=== PATIENT | female | born 1945 | race Caucasian/White ===

== ENCOUNTER → 2023-06-28 14:07 | Outpatient (REF) | payer MEDICARE, OTHER, SELFPAY ==
[2023-06-28 19:06] LABS: Urine Albumin Negative (Neg - Trace); Urine Bilirubin Negative (Negative); Urine Character Clear (Clear); Urine Color Yellow; Urine Glucose Negative (Negative); Urine Ketone Negative (Negative); Urine Leukocyte Negative (Negative); Urine Nitrite Negative (Negative); Urine Occult Blood Negative (Negative); Urine Urobilinogen Negative (Neg - 1+)
== END ==
LOC: CLAB 14:07
PROVIDERS: ATTENDING PHYSICIAN Nurse Practitioner Family
DX: R30.0 Dysuria (principal); R39.9 Unspecified symptoms and signs involving the genitourinary system
CPT/HCPCS: 81003; 87086

== ENCOUNTER → 2023-10-02 10:47 | Outpatient (REF) | payer MEDICARE, OTHER, SELFPAY | LOC: RAD 10:47 | PROVIDERS: ATTENDING PHYSICIAN Internal Medicine Endocrinology, Diabetes & Metabolism; FAMILY PHYSICIAN Family Medicine | DX: M81.0 Age-related osteoporosis without current pathological fracture (principal) | CPT/HCPCS: 77080 ==

== ENCOUNTER → 2024-05-22 07:57 | Outpatient (REF) | payer MEDICARE, OTHER, SELFPAY ==
[2024-05-22 08:53] LABS: % Basophils 0.7 % (0-2); % Eosinophils 2.9 % (0-6); % Immature Granulocytes 0.4 % (0-0.5); % Lymphocytes 29.8 % (20.5-51.1); % Monocytes 11.2 % (1.7-9.3); Absolute Eosinophils 0.2 10^3/uL (0-0.7); Absolute Lymphocytes 1.6 10^3/uL (1.2-3.4); Absolute Monocytes 0.6 10^3/uL (0.1-0.6); Hematocrit 41.2 % (37.0-47.0); Hemoglobin 13.5 g/dL (12.0-16.0); Mean Corp Hgb Conc. 32.8 g/dL (33.0-37.0); Mean Corpuscular Volume 97.6 fL (81.0-99.0); Mean Platelet Volume 8.1 fL (7.4-10.4); Nucleated Red Blood Cells % 0 %; Platelet Count 244 10^3/uL (130-400); Red Blood Cell Count 4.22 10^6/uL (4.20-5.40); Red Cell Dist. Width 12.2 % (11.5-14.5); White Blood Cell Count 5.4 10^3/uL (4.8-10.8)
[2024-05-22 11:03] LABS: ALT (SGPT) 22 U/L (0-35); AST (SGOT) 26 U/L (14-36); Albumin 4.3 g/dl (3.5-5.0); Alkaline Phosphatase 62 U/L (38-126); Blood Urea Nitrogen 16 mg/dl (7-17); Calcium 9.1 mg/dl (8.4-10.2); Carbon Dioxide 25 mmol/L (22-30); Chloride 103 mmol/L (98-107); Glucose 89 mg/dl (70-99); HDL Cholesterol 56 mg/dl; LDL Cholesterol, Calculated 99 mg/dl; Potassium 4.2 mmol/L (3.5-5.1); Sodium 137 mmol/L (135-145); Total Bilirubin 0.4 mg/dl (0.2-1.3); Total Cholesterol 172 mg/dl (50-199); Triglyceride 89 mg/dl (10-149); Very Low Density Lipoprotein 17 mg/dl (0-30); eGFR > 60.00
[2024-05-22 11:41] LABS: Vitamin D, 25-OH*** 26.9 ng/mL (30-80)
== END ==
LOC: REG 07:57
PROVIDERS: ATTENDING PHYSICIAN Family Medicine
DX: M43.9 Deforming dorsopathy, unspecified (principal); I10 Essential (primary) hypertension; J45.30 Mild persistent asthma, uncomplicated; M81.0 Age-related osteoporosis without current pathological fracture; Z13.220 Encounter for screening for lipoid disorders
CPT/HCPCS: 36415; 80053; 80061; 82306; 85025

== ENCOUNTER → 2024-07-25 08:47 | Outpatient (REF) | payer MEDICARE, OTHER, SELFPAY | LOC: RAD 08:47 | PROVIDERS: ATTENDING PHYSICIAN Family Medicine; OTHER PHYSICIAN Anesthesiology Pain Medicine | DX: M25.551 Pain in right hip (principal); M54.50 Low back pain, unspecified | CPT/HCPCS: 72100; 73502 ==

== ENCOUNTER 2025-04-09 05:50 | Emergency (ER) | payer MEDICARE, OTHER, SELFPAY ==
[2025-04-09 05:55] VITALS: BP 150/96
[2025-04-09 06:18] LABS: Hematocrit 37.9 % (37.0-47.0); Hemoglobin 12.7 g/dL (12.0-16.0); Mean Corp Hgb Conc. 33.5 g/dL (33.0-37.0); Mean Corpuscular Volume 96.4 fL (81.0-99.0); Nucleated Red Blood Cells % 0 %; Platelet Count 190 10^3/uL (130-400); Red Cell Dist. Width 12.5 % (11.5-14.5)
[2025-04-09 06:44] LABS: ALT (SGPT) 26 U/L (0-35); AST (SGOT) 29 U/L (14-36); Albumin 4.1 g/dl (3.5-5.0); Alkaline Phosphatase 51 U/L (38-126); Blood Urea Nitrogen 25 mg/dl (7-17); Calcium 8.9 mg/dl (8.4-10.2); Carbon Dioxide 24 mmol/L (22-30); Chloride 109 mmol/L (98-107); Glucose 97 mg/dl (70-99); Potassium 3.9 mmol/L (3.5-5.1); Sodium 138 mmol/L (135-145); Total Protein 6.8 g/dl (6.3-8.2); eGFR > 60.00
[2025-04-09 06:56] LABS: Troponin I < 0.012 ng/ml
--- NOTE | 2025-04-09 09:11 | ED.GENMED ---
History of Present Illness
General
Chief Complaint: Numbness
Source: patient
Exam Limitations: none
Time Seen by Provider: 04/09/25 09:11
History of Present Illness
History of Present Illness:
80yoF with a history of hypertension, bronchiectasis, remote history of breast cancer in remission presenting with her for evaluation of left arm paresthesias for the past 3 days. She is having numbness in her left thumb and index finger
which radiates up the arm to the level of the shoulder. Symptoms will wake her up from sleep and seem to be worse if she sleeps on her left side. Symptoms were initially intermittent but have been constant since 3am this morning. Her left arm
also feels 'heavy' today and she is having some discomfort in her left upper arm. She was worried that she was having a heart attack so called EMS. She denies any chest pain, shortness of breath, headache, visual changes, dizziness, balance
issues, speech disturbance, neck pain. No symptoms in any other extremity. No trauma.
Phy Exam
General Physical Exam
General Presentation: well appearing and no apparent distress
General Skin: warm and dry
General Habitus: normal
General Mental: alert
General Hydration: appears well hydrated
ENT Exam
ENT Exam: normocephalic
Eye Exam
Eye Exam: PERRL, EOMI, conjunctiva normal and visual nolasco normal
Cardiovascular Exam
Cardiovascular Exam: regular rate/rhythm and normal peripheral pulses (2+ radial pulses bilaterally)
Pulmonary Exam
Pulmonary Exam: lungs clear, no respiratory distress, no rales, no crackles, no rhonchi and no wheezing
Neurological Exam
Neurological Exam: alert, CN II-XII intact, no sensory deficits, speech normal and other (4/5 strength with L shoulder abduction which elicits pain. 5/5 strength with elbow flexion/extension and record maker strength intact. No objective sensory deficit
noted.)
Leonel Coma Scale
Eye Opening: Spontaneous
Verbal Response: Oriented
Motor Response: Obeys Commands
GCS Total Score: 15
Musculoskeletal Exam
Musculoskeletal Exam: other (No reproducible tenderness to L shoulder)
Skin Exam
Skin Exam: normal color and warm/dry
Psychiatric Exam
Psychiatric Exam: normal mood/affect
Scores
NIH Stroke Score
Level of Consciousness: 0 - Alert
LOC Questions: 0-Answers both correctly
LOC Commands: 0-Performs both correctly
Best Horizontal Gaze: 0-Normal
Visual Nolasco: 0=Normal, no visual loss
Facial Palsy: 0=Normal, symmetrical
Motor - Right Arm: 0=No drift 10 seconds
Motor - Left Arm: 0=No drift 10 seconds
Motor - Left Le-No drift 5 seconds
Limb Ataxia: 0-Absent
Sensation: 0-Normal
Best Language: 0-No aphasia
Dysarthria: 0-Normal
Extinction and Inattention: 0-No abnormality
Course
Orders/Labs/Results
Orders:
Orders
04/09/25 06:02
Electrocardiogram (*1) Urgent
Reason for Study: Palpitations
Other Reason for Exam: no palpitations, c/o L arm numbness
04/09/25 06:03
EKG- Treatment ONCE
04/09/25 06:10
Complete Blood Count/With Diff Urgent
Comprehensive Metabolic Panel Urgent
Troponin I Urgent
04/09/25 09:36
CT Head & Neck Angio W/wo IV Urgent
Comment:
Reason For Exam: L arm heaviness/paresthesias
CR Humerus - Left Min 2 Views* Urgent
Comment:
Reason For Exam: pain
04/09/25 09:45
CR Shoulder - Left Min 2 View* Urgent
Comment:
Reason For Exam: pain
04/09/25 09:47
Troponin I Urgent
Abnormal Lab Results
04/09/25
06:10
WBC 4.5 L 10^3/uL
(4.8-10.8)
RBC 3.93 L 10^6/uL
(4.20-5.40)
MCH 32.3 H pg
(27.0-31.0)
Monocytes % 11.6 H %
(1.7-9.3)
Chloride 109 H mmol/L
(98-107)
BUN 25 H mg/dl
(7-17)
04/09/25 06:10
04/09/25 06:10
Vital Signs
Initial and Last Documented VS:
Initial Vital Signs
Temp Pulse Resp BP Pulse Ox
98.7 F 66 18 150/96 96
04/09/25 05:55 04/09/25 05:55 04/09/25 05:55 04/09/25 05:55 04/09/25 05:55
Last Documented Vital Signs
Temp Pulse Resp BP Pulse Ox
98.7 F 58 18 142/85 94
04/09/25 05:55 04/09/25 12:05 04/09/25 12:05 04/09/25 12:05 04/09/25 09:36
MDM/Problems Addressed
Differential Diagnosis Includes:
80yoF here with L arm paresthesias. Intermittent x 3 days, now constant since 3am this morning. L arm now feels heavy. No CP/SOB. She is hypertensive with otherwise normal vitals. 4/5 strength noted with L shoulder abduction although this elicits
discomfort on exam. No objective sensory deficits noted. No pronator drift. NIHSS 0. Differential diagnosis includes: cervical radiculopathy, calcific tendonitis, muscular strain, consider CVA, consider ACS
Initial ED plan: Workup initiated in triage. EKG shows sinus bradycardia without ischemic changes and troponin undetectable. Will check repeat troponin, L shoulder/humerus x-rays, and CTA head/neck.
*Pulse Oximetry
SaO2: 96
Oxygen Mode of Delivery: Room air
Patient hypoxic: no
*EKG
Interpreted by ED Provider?: Yes
EKG Intrepretation Date: 04/09/25
Heart Rate: 58
Rate: bradycardiac
Rhythm: sinus
[place]: normal axis
Interval: first degree heart block
QRS Pattern: normal QRS
Ischemia: no ischemia
*Critical Care Note
Total Time (30-74mins, 75-104mins- exclusive of procedures): Not Applicable
Update Note
Update Note:
Repeat troponin remains undetectable. X-ray shows severe degenerative changes in the left shoulder. CTA head/neck negative for large vessel occlusion and dissection. No acute intracranial abnormalities noted. There is a multinodular goiter and a
mild aneurysmal dilation of the ascending thoracic aorta noted incidentally. Patient notified of both findings. Unclear etiology of symptoms although suspect musculoskeletal as symptoms do seem worse with movement of the left shoulder and are
worse if she lays on the left side. Supportive care discussed and advised close f/u with PCP. ED return precautions reviewed and she was discharged in stable condition.
ED Attending Note
-
Portions of this chart may have been created with voice recognition software.� Occasional wrong word or��sound alike� substitutions may have occurred due to the inherent limitations of voice recognition software.
Discharge Plan
Departure
Patient Disposition: Home (Routine Discharge)
Date of Disposition: 04/09/25
Time of Disposition: 12:07
Patient with high blood pressure during this ER visit?: Yes
Discharge Problem:
Paresthesia of left arm, Multinodular goiter, Thoracic aortic aneurysm
Instructions: Paresthesia (DC)
Prescriptions:
No Action
acetaminophen [Tylenol Arthritis] 650 mg Tablet Extended Release
1,300 mg PO Q8H
dextromethorphan-guaifenesin [Mucus Relief DM Cough] 20-400 mg Tablet
2 tab PO BID
budesonide-formoterol [Breyna] 160-4.5 mcg/actuation Hfa Aerosol Inhaler
2 puff INHALATION BID
[id number]-[id number] 20-5-12.5 mg Tablet
1 tab PO DAILY
Referrals:
Isela Fabian DO [Family Provider, Family Practice]
Activity Restrictions/Additional Instructions:
We are unsure what is causing your symptoms. It may be a pinched nerve in your neck or related to arthritis. It is important that you follow-up closely with your family doctor.
CT scan today showed multiple nodules in your thyroid gland as well as a mild thoracic aortic aneurysm. Please discuss next steps with your family doctor.
Return to the ER immediately with any new or worsening symptoms including chest pain.
Interventions
Interventions:
*General Assessment Last Done: 04/09/25 09:31
*Neglect/Abuse Screening Last Done: 04/09/25 09:23
*ED COVID-19 Vaccine History Last Done: 04/09/25 09:41
*ED Influenza Vaccine History Last Done: 04/09/25 09:41
[facility] Risk Assessment Tool Last Done: 04/09/25 09:22
*Risk Screen - Suicide (C-SSRS) Last Done: 04/09/25 05:55
ED- Neurological Assessment Last Done: 04/09/25 09:24
Discharge Date and Time
Print Language: MAURITANIAN
[2025-04-09 09:34] VITALS: BP 163/97
[2025-04-09 09:36] VITALS: BP 163/97
[2025-04-09 10:00] VITALS: BP 146/77
[2025-04-09 10:28] LABS: Troponin I < 0.012 ng/ml
[2025-04-09 12:05] VITALS: BP 142/85
== END 2025-04-09 12:15 | disposition home or self-care (01) ==
LOC: EMR 05:50
PROVIDERS: Emergency Medicine; Physician Assistant; EMERGENCY PHYSICIAN Emergency Medicine; FAMILY PHYSICIAN Family Medicine
DX: R20.2 Paresthesia of skin (principal); E04.2 Nontoxic multinodular goiter; I71.20 Thoracic aortic aneurysm, without rupture, unspecified; I10 Essential (primary) hypertension; Z85.3 Personal history of malignant neoplasm of breast
CPT/HCPCS: 99284; 70496; 70498; 73030; 73060; 80053; 84484; 85025; 93005; Q9967